=== PATIENT | female | born 1965 | race African-American/Black ===

== ENCOUNTER 2017-04-21 10:53 | Emergency (ER) | payer BC ==
[2017-04-21 11:10] VITALS: TEMP 98.5; BMI 40.2
--- NOTE | 2017-04-21 12:37 | PDOC ---
History of Present Illness - History of Present Illness Initial Comments: 04/21/17 13:02 51yo woman with PMH of HTN (on Olmesartan), sleep apnea, and gastric ulcers who presents with acute onset MATHIS this morning. She woke up at 4am to use the bathroom, and had a throbbing like headache across her forehead and temples bilaterally of 8/10 severity. She was able to fall back asleep, but when awoke again the MATHIS was still present. She reports pain worse when she bends over. No alleviating factors identified. Reports some nausea this morning, which has resolved. This is the first such episode. Denies orbital pain, tearing, or changes in vision. No fever or chills. No recent trauma, travel or sick contacts. PCP: Dr. Hernandez 04/21/17 13:23 <Azeb Alonzo - Last Filed: 04/21/17 15:52> <She Del Cid - Last Filed: 04/21/17 17:21> - General Chief Complaint: Headache Stated Complaint: HEADACHE Time Seen by Provider: 04/21/17 12:26 Past History - Travel Traveled outside of the country in the last 30 days: No Close contact w/someone who was outside of country & ill: No - Past Medical History COPD: No DVT: No Dementia: No - Immunization History Immunization Up to Date: Yes - Suicide/Smoking/Psychosocial Hx Smoking History: Never smoked Information on smoking cessation initiated: No Hx Alcohol Use: No Drug/Substance Use Hx: No Substance Use Type: None <Azeb Alonzo - Last Filed: 04/21/17 15:52> <She Del Cid - Last Filed: 04/21/17 17:21> - Past Medical History Allergies/Adverse Reactions: Allergies Allergy/AdvReac Type Severity Reaction Status Date / Time No Known Allergies Allergy Verified 04/21/17 11:05 Home Medications: Ambulatory Orders Olmesartan Medoxomil [Benicar (Nf)] 10 mg PO DAILY 04/21/17 Review of Systems - Review of Systems Constitutional: No: Symptoms Reported, See HPI, Chills, Diaphoresis, Fever, Loss of Appetite, Malaise, Night Sweats, Weakness, Weight Stable, Unintentional Wgt. Loss, Unexplained wgt Loss, Other HEENTM: No: Symptoms Reported, See HPI, Eye Pain, Blurred Vision, Tearing, Recent change in vision, Double Vision, Cataracts, Ear Pain, Ocular Prothesis, Ear Discharge, Nose Pain, Nose Congestion, Tinnitus, Nose Bleeding, Hearing Loss , Throat Pain, Throat Swelling, Mouth Pain, Dental Problems, Difficulty Swallowing, Mouth Swelling, Other Respiratory: No: Symptoms reported, See HPI, Cough, Orthopnea, Shortness of Breath, SOB with Exertion, SOB at Rest, Stridor, Wheezing, Productive cough, Hemoptysis, Other Cardiac (ROS): No: Symptoms Reported, See HPI, Chest Pain, Edema, Irregular Heart Rate, Lightheadedness, Palpitations, Syncope, Chest Tightness, Other ABD/GI: Yes: Nausea Neurological: Yes: See HPI <Azeb Alonzo - Last Filed: 04/21/17 15:52> *Physical Exam - Vital Signs Last Vital Signs Temp Pulse Resp BP Pulse Ox 98.5 F 55 L 17 155/77 93 L 04/21/17 11:05 04/21/17 11:05 04/21/17 11:05 04/21/17 11:05 04/21/17 11:05 - Physical Exam General Appearance: Yes: Nourished, Appropriately Dressed HEENT: positive: EOMI, YUSEF, Normal ENT Inspection Neck: positive: Supple Respiratory/Chest: positive: Lungs Clear, Normal Breath Sounds Cardiovascular: positive: Regular Rhythm, Regular Rate, S1, S2 Gastrointestinal/Abdominal: positive: Soft, Protuberent. 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 Sinus bradycardia, rate 56, normal axis. No GREGORIA <Nassef,Yomna - Last Filed: 04/21/17 17:21> ED Treatment Course - LABORATORY CBC & Chemistry Diagram: 04/21/17 13:08 04/21/17 13:08 - RADIOLOGY Radiology Studies Ordered: 04/21/17 15:[address] non-contrast TECHNIQUE: Sequential axial images were obtained from the base of the skull to the vertex. There is no evidence of acute intracranial hemorrhage, mass lesions or infarctions. IMPRESSION: Normal CT scan of the head with no evidence of acute intracranial pathology. <Azeb Alonzo - Last Filed: 04/21/17 15:52> - LABORATORY CBC & Chemistry Diagram: 04/21/17 13:08 04/21/17 13:08 - ADDITIONAL ORDERS Additional order review: Laboratory Results 04/21/17 13:08 Sodium 142 Potassium 4.3 Chloride 105 Carbon Dioxide 31 Anion Gap 6 L BUN 11 Creatinine 0.8 Creat Clearance w eGFR > 60 Random Glucose 93 Calcium 9.7 Total Bilirubin 0.3 AST 17 ALT 20 Alkaline Phosphatase 71 Total Protein 7.6 Albumin 3.7 04/21/17 13:08 RBC 4.59 MCV 83.0 MCHC 32.5 RDW 15.4 MPV 8.2 Neutrophils % 63.9 Lymphocytes % 27.0 Monocytes % 6.9 Eosinophils % 1.6 Basophils % 0.6 - Medications Given in the ED: ED Medications Discontinued Medications Generic Name Dose Route Start Last Admin Trade Name Freq PRN Reason Stop Dose Admin Acetaminophen 1,000 mg 04/21/17 12:53 04/21/17 13:15 Ofirmev Injection - IVPB 04/21/17 12:54 1,000 mg ONCE ONE Administration Ketorolac Tromethamine 15 mg 04/21/17 14:14 04/21/17 14:29 Toradol Injection - IVPUSH 04/21/17 14:15 15 mg ONCE ONE Administration Metoclopramide HCl 10 mg 04/21/17 14:01 04/21/17 14:29 Reglan Injection - IVPUSH 04/21/17 14:02 10 mg ONCE ONE Administration Sodium Chloride 1,000 ml 04/21/17 14:02 04/21/17 14:29 Normal Saline - IV 04/21/17 14:03 1,000 ml ONCE ONE Administration <Mikel Del Cidmna - Last Filed: 04/21/17 17:21> Medical Decision Making - Medical Decision Making 04/21/17 14:12 51yo woman who presents with acute onset severe MATHIS. Head CT negative for acute intracranial process. Infectious etiology unlikely given pt is afebrile with no leukocytosis. Will give the following, and reassess. -Tylenol IV 1g -Toradol IVP 15mg -Reglan IVP 10mg -1L IVF 04/21/17 15:48 Patient's symptoms have improved. Headache currently 4/10 severity. No additional complaints. She is well-appearing, vital signs stable. Labs wnl. She has tolerated food, and would like to go home. Patient is stable for discharge home with follow-up with Neurology and PCP. 04/21/17 15:53 <Azeb Alonzo - Last Filed: 04/21/17 15:52> *DC/Admit/Observation/Transfer - Discharge Dispostion Admit: No <Azeb Alonzo - Last Filed: 04/21/17 15:52> <She Del Cid - Last Filed: 04/21/17 17:21> Diagnosis at time of Disposition: Headache - Discharge Dispostion Disposition: HOME Condition at time of disposition: Stable - Referrals Referrals: Arnaldo eHrnandez MD [Primary Care Provider] - Tung Paez DO [Staff Physician] - - Patient Instructions Printed Discharge Instructions: DI for Headache Additional Instructions: Please follow-up with your primary care provider within 1-[address] Paez, a Neurologist, about your headaches within 1 week. Office number is [phone], call tomorrow for an appointment. You can take over the counter Tylenol for your headache as needed. Please return to the Emergency Department if you have any new, worsening, or concerning symptoms. - Post Discharge Activity
[2017-04-21] MEDS ORDERED: ACETAMINOPHEN 1000 MG/100 ML VIAL (NON FORMULARY) IVPB ONE (12:53)
[2017-04-21] MEDS ORDERED: ACETAMINOPHEN INJECTION 100 ML IVPB ONE (13:11)
[2017-04-21 13:14] LABS: BASO % 0.6 % (0-2.0); EOS % 1.6 % (0-4.5); MCHC 32.5 g/dl (32.0-36.0); MEAN PLT VOLUME 8.2 fl (7.5-11.1); NEUT % 63.9 % (42.8-82.8); PLATELET COUNT 280 K/MM3 (134-434); RDW 15.4 % (11.6-15.6); WHITE BLOOD COUNT 8.6 K/mm3 (4.0-10.0)
[2017-04-21 13:48] LABS: ALBUMIN 3.7 g/dl (3.4-5.0); ANION GAP 6 (8-16); BILIRUBIN,TOTAL 0.3 mg/dL (0.2-1.0); CALCIUM 9.7 mg/dL (8.5-10.1); CO2 31 mmol/L (21-32); CREATININE 0.8 mg/dL (0.55-1.02); GLUCOSE,RANDOM 93 mg/dL (74-106); SGOT/AST 17 U/L (15-37); SGPT/ALT 20 U/L (12-78); TOT PROT 7.6 g/dl (6.4-8.2)
[2017-04-21 13:49] LABS: ALK PHOS 71 U/L (45-117)
[2017-04-21] MEDS ORDERED: METOCLOPRAMIDE HCL INJECTION 10 MG/2 ML VIAL IVPUSH ONE (14:01)
[2017-04-21] MEDS ORDERED: SODIUM CHLORIDE 0.9% 500 ML INFUS.BAG IV ONE (14:02)
--- NOTE | 2017-04-21 14:02 | PDOC ---
Attending Attestation - Resident Resident Name: Azeb Alonzo - ED Attending Attestation I have performed the following: I have examined & evaluated the patient, The case was reviewed & discussed with the resident, I agree w/resident's findings & plan, Exceptions are as noted - HPI HPI: 04/21/17 13:57 51yo F hx HTN, JAQUAN, gastric ulcers p/w headache this morning. Reports she woke up at 4am to use the bathroom and noticed a headache over her advent's b/l and forehead, throbbing in quality, 8/10, worse with leaning forward a/w nausea. No tx tried. Denies visual sxs, focal weakness. Does not get headaches often but reports headaches are typically in a similar distribution. Denies photophobia, neck stiffness, fevers, chills. Denies CP/SOB. - Physicial Exam PE: 04/21/17 14:00 GENERAL: Awake, alert, and fully oriented, in no acute distress HEAD: No signs of trauma EYES: PERRLA, EOMI, sclera anicteric, conjunctiva clear ENT: Auricles normal inspection, hearing grossly normal, nares patent, oropharynx clear without exudates. Moist mucosa NECK: Normal ROM, supple, no lymphadenopathy, JVD, or masses LUNGS: Breath sounds equal, clear to auscultation bilaterally. No wheezes, and no crackles HEART: Regular rate and rhythm, normal S1 and S2, no murmurs, rubs or gallops ABDOMEN: Soft, nontender, normoactive bowel sounds. No guarding, no rebound. No masses EXTREMITIES: Normal range of motion, no edema. No clubbing or cyanosis. No cords, erythema, or tenderness NEUROLOGICAL: Normal speech, cranial nerves intact, negative pronator drift, 5/ 5 strength in all 4 extremities, normal sensation to light touch in all 4 extremities, normal cerebellar exam, normal gait, normal reflexes and tone SKIN: Warm, Dry, normal turgor, no rashes or lesions noted. - Medical Decision Making 04/21/17 12:15 51-year-old female presents with headache upon waking up to go to the bathroom. Headache did not wake the patient up from sleep. Vitals are unremarkable. Exam is unremarkable with normal neurologic exam. Differential is wide but includes tension headache given the bitemporal nature of the headache. Unlikely to be subarachnoid hemorrhage as the headache was not thunderclap in quality, not sudden onset, and not associated with any stiff neck, vomiting or neuro deficits. Differential also includes mass occupying lesion and patient's family member reports that her father had a tumor. I offered them a CT scan of the head but informed them that a CT is not the most sensitive study for a mass and if was negative that they would need to follow-up with a neurologist likely for an MRI. Will treat with fluids, Reglan, IV Tylenol and reassess. 04/21/17 14:22 CT head negative. Labs within normal limits. 04/21/17 15:58 Patient reports complete resolution of headache after Tylenol, fluids, Reglan and Toradol. Likely was a migraine or tension headache. Discussed the importance of follow-up with neurology for a headache workup, the patient expresses understanding. Patient requests discharge. I discussed the physical exam findings, ancillary test results and final diagnoses with the patient. I answered all of the patient's questions. The patient was satisfied with the care received and felt comfortable with the discharge plan and treatment plan. The patient will call their primary care physician within 24 hours to arrange follow-up and will return to the Emergency Department with any new, persistent or worsening symptoms.
[2017-04-21] MEDS ORDERED: KETOROLAC TROMETHAMINE 15 MG/ML VIAL IVPUSH ONE (14:14)
[2017-04-21] MEDS ORDERED: METOCLOPRAMIDE HCL INJECTION 10 MG/2 ML VIAL ONE (14:16)
[2017-04-21] MEDS ORDERED: KETOROLAC TROMETHAMINE 15 MG/ML VIAL ONE (14:16)
[2017-04-21 16:08] VITALS: BP 136/63; PULSE 65
--- NOTE | 2017-04-25 16:21 | EKG ---
Test Reason : Blood Pressure : / mmHG Vent. Rate : 056 BPM Atrial Rate : 056 BPM P-R Int : 140 ms QRS Dur : 076 ms QT Int : 420 ms P-R-T Axes : 007 -01 001 degrees QTc Int : 405 ms SINUS BRADYCARDIA OTHERWISE NORMAL ECG WHEN COMPARED WITH ECG OF 09-JAN-2005 14:34, T WAVE AMPLITUDE HAS DECREASED IN ANTERIOR LEADS Confirmed by FELICIA JONES MD ([id number]) on 04/25/2017 4:21:31 PM Referred By: Confirmed By:FELICIA JONES MD
== END 2017-04-21 16:08 | disposition home or self-care (01) ==
LOC: JER 10:53
PROC: 3E033NZ Introduction of Analgesics, Hypnotics, Sedatives into Peripheral Vein, Percutaneous Approach (ICD-10-PCS; principal; 2017-04-21)
PROC: 3E0333Z Introduction of Anti-inflammatory into Peripheral Vein, Percutaneous Approach (ICD-10-PCS; 2017-04-21)
PROC: 3E033GC Introduction of Other Therapeutic Substance into Peripheral Vein, Percutaneous Approach (ICD-10-PCS; 2017-04-21)
DX: R51 Headache (principal); I10 Essential (primary) hypertension; G47.33 Obstructive sleep apnea (adult) (pediatric); Z87.19 Personal history of other diseases of the digestive system
CPT/HCPCS: 36415; 70450-TC; 80053; 85025; 93005; 93010; 99282-25